=== PATIENT | female | born 1960 | race Caucasian/White ===

== ENCOUNTER 2021-03-29 00:05 | Emergency (ER) | payer MEDICAID, OTHER ==
[~2021-03-29] VITALS: Ht 162.6 cm; Wt 82.6 kg
[2021-03-29 00:05] VITALS: BP 184/88
[2021-03-29] MEDS ORDERED: ACCU-CHEK COMFORT CURVE STRIP VI ONE (01:15)
[2021-03-29 02:01] LABS: Basophils # (auto) 0.1 10 ^3/uL (0-0.2); Basophils % (auto) 0.9 % (0.0-2.0); Eosinophils # (auto) 0.3 10 ^3/uL (0-0.8); Hematocrit 40.7 % (36.0-46.0); Hemoglobin 14.2 g/dL (12.2-16.2); Lymphocytes # (auto) 1.9 10 ^3/uL (0.4-5.4); Lymphocytes % (auto) 18.7 % (10.0-50.0); Mean Corpuscular Volume 82.9 fL (80.0-100.0); Monocytes # (auto) 0.7 10 ^3/uL (0-1.3); Neutrophils # (auto) 7.2 10 ^3/uL (1.6-8.6); Neutrophils % (auto) 70.4 % (37.0-80.0); Nucleated Red Blood Cells % 0.1 %; Red Blood Cells 4.91 10^6/uL (4.0-5.20); Red Cell Distribution Width 14.6 % (11.8-14.3); White Blood Cell 10.2 10^3/uL (4.4-10.8)
[2021-03-29 02:24] LABS: Albumin 3.3 g/dL (3.4-5.0); Calcium 9.5 mg/dL (8.5-10.1)
[2021-03-29 02:26] LABS: BUN/Creatinine Ratio 16.9
[2021-03-29 02:29] LABS: Bilirubin, Total 0.4 mg/dL (0.2-1.0); Total Protein 8.6 g/dL (6.4-8.2)
== END 2021-03-29 03:19 | disposition left against medical advice (07) ==
LOC: EDBD 00:05 → ER 00:05
DX: R55 Syncope and collapse (principal); M25.511 Pain in right shoulder; M25.562 Pain in left knee; Z53.21 Procedure and treatment not carried out due to patient leaving prior to being seen by health care provider
CPT/HCPCS: 36415; 70450; 80053; 85025; 93005